=== PATIENT | female | born 1985 | race Caucasian/White ===

== ENCOUNTER 2025-06-19 14:29 | Emergency (ER) | payer MEDICAID, OTHER ==
[~2025-06-19] VITALS: Ht 162.6 cm; Wt 63.4 kg
[2025-06-19 14:30] VITALS: BP 129/81; PULSE 100; RESP 16; TEMP 97.5; O2SAT 80
== END 2025-06-19 15:27 | disposition left against medical advice (07) ==
LOC: ER 14:29
DX: R20.0 Anesthesia of skin (principal); Z79.899 Other long term (current) drug therapy